=== PATIENT | female | born 1940 | race Caucasian/White ===

== ENCOUNTER → 2016-12-04 | Outpatient (CLI) | payer OTHER ==
[2016-12-04 13:13] LABS: BASO ABS # 0.06 K/uL (0-0.2); COMPLETE YES; EOS % 2.5 %; HEMATOCRIT 31.6 % (37-47); IG% 0.2 %; LYMPH % 29.6 %; LYMPH ABS # 1.78 K/uL (1.2-3.4); MEAN CELL VOLUME 80.8 fL (80-100); MEAN CORPUSCULAR HEMOGLOBIN 24.6 pg (25-34); MEAN CORPUSCULAR HGB CONC 30.4 g/dl (32-36); MEAN PLATELET VOLUME 11.9 fL (7.4-10.4); NEUT % 56.7 %; PLATELET COUNT 243 K/uL (130-400); RED BLOOD COUNT 3.91 M/uL (4.2-5.4); WHITE BLOOD COUNT 6.02 K/uL (4.8-10.8)
[2016-12-04 13:37] LABS: BLOOD UREA NITROGEN 15 mg/dl (7-18); CALCIUM 11.1 mg/dl (8.5-10.1); CARBON DIOXIDE 24 mmol/L (21-32); CHLORIDE 106 mmol/L (98-107); GLUCOSE 124 mg/dl (70-99); POTASSIUM 3.7 mmol/L (3.5-5.1); SODIUM 139 mmol/L (136-145)
[2016-12-04 13:42] LABS: FERRITIN 5.8 ng/ml (8.0-388.0); PHOSPHORUS 2.2 mg/dl (2.5-4.9); TOTAL IRON BINDING CAPACITY 359 mcg/dl (250-450)
== END | disposition home or self-care (01) ==
LOC: C.LABMFLN 09:21
PROVIDERS: ATTEND Family Medicine
DX: D64.9 Anemia, unspecified (principal); I10 Essential (primary) hypertension

== ENCOUNTER → 2017-03-04 | Outpatient (CLI) | payer OTHER ==
[2017-03-04 13:22] LABS: BASO % 0.5 %; BASO ABS # 0.03 K/uL (0-0.2); COMPLETE YES; HEMATOCRIT 34.2 % (37-47); IG% 0.2 %; LYMPH % 28.5 %; LYMPH ABS # 1.61 K/uL (1.2-3.4); MEAN CELL VOLUME 87.5 fL (80-100); MEAN CORPUSCULAR HEMOGLOBIN 26.9 pg (25-34); MEAN CORPUSCULAR HGB CONC 30.7 g/dl (32-36); MEAN PLATELET VOLUME 12.2 fL (7.4-10.4); MONO % 10.8 %; PLATELET COUNT 212 K/uL (130-400); RED BLOOD COUNT 3.91 M/uL (4.2-5.4); WHITE BLOOD COUNT 5.65 K/uL (4.8-10.8)
[2017-03-04 16:56] LABS: ALT/SGPT 21 U/L (12-78); AST/SGOT 18 U/L (15-37); BLOOD UREA NITROGEN 17 mg/dl (7-18); BUN/CREATININE RATIO 17.1 (10-20); CALCIUM 10.6 mg/dl (8.5-10.1); CARBON DIOXIDE 30 mmol/L (21-32); CHLORIDE 107 mmol/L (98-107); GLUCOSE 100 mg/dl (70-99); POTASSIUM 3.5 mmol/L (3.5-5.1); SODIUM 142 mmol/L (136-145)
[2017-03-04 17:04] LABS: ALB/GLOB RATIO 1.1 (0.9-2); ALKALINE PHOSPHATASE 104 U/L (45-117); FERRITIN 9.9 ng/ml (8.0-388.0); MAGNESIUM 2.4 mg/dl (1.8-2.4)
== END | disposition home or self-care (01) ==
LOC: C.LABMFLN 10:34
PROVIDERS: ATTEND Family Medicine
DX: D50.9 Iron deficiency anemia, unspecified (principal); I10 Essential (primary) hypertension; E83.42 Hypomagnesemia

== ENCOUNTER → 2017-04-01 | Outpatient (CLI) | payer OTHER ==
[2017-04-01 19:19] LABS: BLOOD UREA NITROGEN 15 mg/dl (7-18); BUN/CREATININE RATIO 13.7 (10-20); CALCIUM 11.1 mg/dl (8.5-10.1); CARBON DIOXIDE 29 mmol/L (21-32); CHLORIDE 109 mmol/L (98-107); GLUCOSE 139 mg/dl (70-99); PHOSPHORUS 2.1 mg/dl (2.5-4.9); POTASSIUM 3.4 mmol/L (3.5-5.1); SODIUM 143 mmol/L (136-145)
== END | disposition home or self-care (01) ==
LOC: C.LABMFLN 15:05
PROVIDERS: ATTEND Family Medicine
DX: I10 Essential (primary) hypertension (principal)

== ENCOUNTER → 2017-06-03 | Outpatient (CLI) | payer OTHER ==
[2017-06-03 13:14] LABS: BASO % 0.7 %; BASO ABS # 0.05 K/uL (0-0.2); COMPLETE YES; EOS % 1.7 %; HEMATOCRIT 36.2 % (37-47); IG% 0.1 %; LYMPH % 25.9 %; LYMPH ABS # 1.78 K/uL (1.2-3.4); MEAN CORPUSCULAR HEMOGLOBIN 28.6 pg (25-34); MEAN CORPUSCULAR HGB CONC 31.8 g/dl (32-36); MEAN PLATELET VOLUME 11.5 fL (7.4-10.4); MONO % 8.4 %; NEUT % 63.2 %; PLATELET COUNT 241 K/uL (130-400); RED BLOOD COUNT 4.02 M/uL (4.2-5.4); WHITE BLOOD COUNT 6.88 K/uL (4.8-10.8)
[2017-06-03 13:49] LABS: BLOOD UREA NITROGEN 16 mg/dl (7-18); BUN/CREATININE RATIO 14.3 (10-20); CALCIUM 10.8 mg/dl (8.5-10.1); CARBON DIOXIDE 26 mmol/L (21-32); CHLORIDE 107 mmol/L (98-107); GLUCOSE 119 mg/dl (70-99); POTASSIUM 4.2 mmol/L (3.5-5.1); SODIUM 139 mmol/L (136-145)
[2017-06-03 13:51] LABS: PHOSPHORUS 2.3 mg/dl (2.5-4.9); TOTAL IRON BINDING CAPACITY 310 mcg/dl (250-450)
== END | disposition home or self-care (01) ==
LOC: C.LABMFLN 10:31
PROVIDERS: ATTEND Family Medicine
DX: D64.9 Anemia, unspecified (principal); I10 Essential (primary) hypertension

== ENCOUNTER → 2017-09-08 | Outpatient (CLI) | payer OTHER ==
[2017-09-08 13:18] LABS: BASO % 0.5 %; BASO ABS # 0.02 K/uL (0-0.2); COMPLETE YES; EOS % 2.5 %; IG% 0.3 %; LYMPH % 26.1 %; LYMPH ABS # 0.95 K/uL (1.2-3.4); MEAN CELL VOLUME 91.9 fL (80-100); MEAN CORPUSCULAR HEMOGLOBIN 30.2 pg (25-34); MEAN CORPUSCULAR HGB CONC 32.9 g/dl (32-36); MEAN PLATELET VOLUME 12.1 fL (7.4-10.4); MONO % 17.9 %; NEUT % 52.7 %; PLATELET COUNT 191 K/uL (130-400); RED BLOOD COUNT 3.81 M/uL (4.2-5.4); WHITE BLOOD COUNT 3.64 K/uL (4.8-10.8)
[2017-09-08 13:45] LABS: BLOOD UREA NITROGEN 18 mg/dl (7-18); BUN/CREATININE RATIO 17.7 (10-20); CARBON DIOXIDE 26 mmol/L (21-32); CHLORIDE 108 mmol/L (98-107); GLUCOSE 86 mg/dl (70-99); POTASSIUM 3.6 mmol/L (3.5-5.1); SODIUM 140 mmol/L (136-145)
[2017-09-08 13:46] LABS: PHOSPHORUS 2.1 mg/dl (2.5-4.9)
== END | disposition home or self-care (01) ==
LOC: C.LABMFLN 10:12
PROVIDERS: ATTEND Family Medicine
DX: D50.9 Iron deficiency anemia, unspecified (principal); I10 Essential (primary) hypertension

== ENCOUNTER → 2018-07-07 | Outpatient (CLI) | payer OTHER ==
[2018-07-07 12:52] LABS: BASO % 0.5 %; BASO ABS # 0.03 K/uL (0-0.2); EOS % 2.6 %; EOS ABS # 0.16 K/uL (0-0.5); HEMATOCRIT 37.5 % (37-47); HEMOGLOBIN 11.8 g/dL (12.0-16.0); IG# 0.02 K/uL (0.00-0.02); LYMPH % 24.1 %; LYMPH ABS # 1.48 K/uL (1.2-3.4); MEAN CELL VOLUME 92.1 fL (80-100); MEAN CORPUSCULAR HGB CONC 31.5 g/dl (32-36); MEAN PLATELET VOLUME 12.5 fL (7.4-10.4); MONO % 10.4 %; MONO ABS # 0.64 K/uL (0.11-0.59); NEUT % 62.1 %; NEUT ABS # 3.81 K/uL (1.4-6.5); PLATELET COUNT 215 K/uL (130-400); RED CELL DISTRIBUTION WIDTH CV 14.2 % (11.5-14.5); WHITE BLOOD COUNT 6.14 K/uL (4.8-10.8)
[2018-07-07 13:40] LABS: ALKALINE PHOSPHATASE 114 U/L (45-117); ALT/SGPT 23 U/L (12-78); AST/SGOT 21 U/L (15-37); BLOOD UREA NITROGEN 19 mg/dl (7-18); CARBON DIOXIDE 24 mmol/L (21-32); CHOLESTEROL 216 mg/dl (0-200); CREATININE 1.05 mg/dl (0.60-1.20); GLUCOSE 83 mg/dl (70-99); LDL CHOLESTEROL CALCULATED 103 mg/dl; POTASSIUM 5.1 mmol/L (3.5-5.1); SODIUM 137 mmol/L (136-145); TOTAL PROTEIN 7.9 gm/dl (6.4-8.2)
== END | disposition home or self-care (01) ==
LOC: C.LABMFLN 08:28
PROVIDERS: ATTEND Family Medicine
DX: I10 Essential (primary) hypertension (principal); E78.5 Hyperlipidemia, unspecified